=== PATIENT | male | born 1990 | race African-American/Black ===

== ENCOUNTER 2019-10-20 05:37 | Emergency (ER) | payer OTHER ==
[~2019-10-20] VITALS: Ht 185.4 cm; Wt 95.0 kg
[~2019-10-20 05:37] MED LIST: RISPERDAL
[2019-10-20 07:16] LABS: BASOPHILS % 0.8 % (0.0-2.0); EOSINOPHILS % 1.8 % (0.0-5.0); HEMATOCRIT. 44.3 % (42.0-52.0); HEMOGLOBIN. 14.2 g/dL (14.0-18.0); LYMPHOCYTES % 47.7 % (20.0-50.0); MEAN CORPUSCULAR HEMOGLOBIN 29.4 pg (28.0-32.0); MEAN CORPUSCULAR VOLUME 91.6 fL (80.0-94.0); MEAN PLATELET VOLUME 9.4 fl (7.4-10.4); MONOCYTES % 7.7 % (2.0-8.0); PLATELET 215 x1000/uL (130-400); RED BLOOD CELL COUNT 4.84 mill/uL (4.7-6.1); RED CELL DISTRIBUTION WIDTH 14.8 % (11.6-14.6)
[2019-10-20 07:26] LABS: CHLORIDE 109 mEq/L (98-107)
[2019-10-20 07:30] LABS: ETHANOL BLOOD < 10 mg/dL
[2019-10-20 08:14] LABS: CLARITY URINE CLEAR (CLEAR); COLOR URINE YELLOW (YELLOW); KETONES URINE NEGATIVE (NEGATIVE); LEUKOCYTE ESTERASE URINE NEGATIVE (NEGATIVE); NITRITE URINE NEGATIVE (NEGATIVE); OCCULT BLOOD URINE 1+ (NEGATIVE); PH URINE 5.5 (4.5-8.0); PROTEIN URINE 1+ (NEGATIVE); SPECIFIC GRAVITY URINE 1.018 (1.005-1.030); UROBILINOGEN URINE 0.2 E.U./dL (0.2-1.0)
[2019-10-20 09:05] LABS: *AMPHETAMINES SCREEN URINE NEGATIVE (NEGATIVE); *BARBITURATES SCREEN URINE NEGATIVE (NEGATIVE); *BENZODIAZEPINES SCREEN URINE NEGATIVE (NEGATIVE); *COCAINE SCREEN URINE NEGATIVE (NEGATIVE); METHADONE URINE SCREEN NEGATIVE (NEGATIVE); OPIATES URINE SCREEN NEGATIVE (NEGATIVE)
[2019-10-20 09:06] LABS: CANNABINOID URINE SCREEN PRESUMTIVE POSITIVE (NEGATIVE); PHENCYCLIDINE URINE SCREEN NEGATIVE (NEGATIVE)
[2019-10-20 13:10] VITALS: BP 117/71
== END 2019-10-20 13:11 | disposition home or self-care (01) ==
LOC: ER 05:37
DX: G40.909 Epilepsy, unspecified, not intractable, without status epilepticus (principal); R41.0 Disorientation, unspecified; R32 Unspecified urinary incontinence; R03.0 Elevated blood-pressure reading, without diagnosis of hypertension; F20.9 Schizophrenia, unspecified
CPT/HCPCS: 36415; 70450; 71045; 80053; 80305; 80320; 81003; 82962; 84484; 85025; 93005; 99284; Z7610; G0480

== ENCOUNTER 2020-04-22 05:20 | Emergency (ER) | payer OTHER, MEDICAID ==
[~2020-04-22] VITALS: Ht 190.5 cm; Wt 100.0 kg
[2020-04-22 05:54] LABS: BASOPHILS % 1.2 % (0.0-2.0); EOSINOPHILS % 1.6 % (0.0-5.0); HEMATOCRIT. 44.7 % (42.0-52.0); HEMOGLOBIN. 14.4 g/dL (14.0-18.0); LYMPHOCYTES % 56.4 % (20.0-50.0); MEAN CORPUSCULAR VOLUME 89.7 fL (80.0-94.0); MEAN PLATELET VOLUME 9.1 fl (7.4-10.4); NEUTROPHILS % 33.8 % (40.0-76.0); PLATELET 225 x1000/uL (130-400); RED BLOOD CELL COUNT 4.98 mill/uL (4.7-6.1); RED CELL DISTRIBUTION WIDTH 15.1 % (11.6-14.6)
[2020-04-22 05:57] LABS: CHLORIDE 105 mEq/L (98-107)
[2020-04-22] MEDS ORDERED: SODIUM CHLORIDE 0.9% 1,000 ML IV ONE (06:18)
[2020-04-22] MEDS ORDERED: LEVETIRACETAM 1000MG/100ML 100 ML IV ONE (06:30)
[2020-04-22 08:50] VITALS: BP 132/70
== END 2020-04-22 09:28 | disposition home or self-care (01) ==
LOC: ER 05:20
DX: R56.9 Unspecified convulsions (principal); F20.9 Schizophrenia, unspecified
CPT/HCPCS: 36415; 80053; 82962; 85025; 96365; 99284; J1953; J7030